=== PATIENT | male | born 1990 | race Two or more races ===

== ENCOUNTER 2021-10-09 10:40 | Emergency (ER) | payer OTHER ==
[~2021-10-09] VITALS: Ht 185.4 cm; Wt 117.9 kg
[2021-10-09] MEDS ORDERED: CIPRO500 MG PO (14:12)
[2021-10-09] MEDS ORDERED: KETO10TA2 PO (14:12)
[2021-10-09] MEDS ORDERED: METRONIDAZOLE500 MG PO (14:12)
== END 2021-10-09 14:16 | disposition home or self-care (01) ==
LOC: ER 10:40
DX: L05.01 Pilonidal cyst with abscess (principal); B96.89 Other specified bacterial agents as the cause of diseases classified elsewhere